=== PATIENT | female | born 1960 | race Hispanic/Latino ===

== ENCOUNTER → 2018-07-17 | Outpatient (CLI) | payer BC ==
--- NOTE | 2018-07-17 10:55 | Diagnostic Imaging Report ---
PROCEDURE:ABDOMINAL ULTRASOUND COMPARISON:None. INDICATIONS:FATTY LIVER TECHNIQUE: Hebert-scale and color sonographic images were obtained of the abdomen in transverse and sagittal planes. FINDINGS: Liver: Measures 13.4 cm in length in right midclavicular line. Increased echogenicity. No masses. Main portal vein: Measures 0.7 cm with normal hepatopetal flow Gallbladder: No stones or wall thickening. Common Bile Duct: Nondilated measuring 0.4 cm Sonographic Collier's sign: Negative Right kidney: Measures 10.0 x 4.8 x 4.4 cm without evidence of stones, hydronephrosis or mass. Left kidney: Measures 9.8 x 5.9 x 4.3 cm without evidence of stones, hydronephrosis or mass. Spleen: Measures 8.4 x 3.6 x 2.7 cm. Pancreas: The visualized portions are unremarkable. Inferior vena cava: Patent Aorta: Within normal limits Ascites: None CONCLUSION: Diffuse hepatic steatosis without a focal mass. Ramone Martinez D.O. Dictated by: Ramone Martinez D.O. on 07/17/2018 at 11:02 Electronically approved by: Ramone Martinez D.O. on 07/17/2018 at 11:02
== END ==
LOC: US 09:35
PROVIDERS: ATTEND Internal Medicine Gastroenterology
DX: K76.0 Fatty (change of) liver, not elsewhere classified (principal); E66.9 Obesity, unspecified; Z71.3 Dietary counseling and surveillance
CPT/HCPCS: 76700

== ENCOUNTER 2018-12-26 11:17 | Emergency (ER) | payer BC ==
[~2018-12-26] VITALS: Ht 152.4 cm; Wt 81.6 kg
--- OUTSIDE RECORDS SUMMARY | 2018-12-26 11:19 | XMS REPORT ---
Author Author [facility] Address Unknown Phone Unavailable Care Team Providers Care Media Reporter Name Role Phone Hang FENG Unavailable Unavailable Problems This patient has no known problems. Allergies, Adverse Reactions, Alerts Allergy Name Allergy Type Status Severity Reaction(s) Onset Date Inactive Date Treating Clinician Comments No Known Allergies DA Active U 2018-10-22 00:00:00 No Known Drug Intolerances DA Active U 2005-07-10 00:00:00 No Known Contrast Allergies DA Active U 2005-07-10 00:00:00 No Known Drug Allergies DA Active U 2005-07-10 00:00:00 No Known Food Allergies DA Active U 2005-07-10 00:00:00 No Known Other Allergies DA Active U 2005-07-10 00:00:00 Medications This patient has no known medications. Results Test Description Test Time Test Comments Text Results Atomic Results Result Comments US ABDOMEN COMPLETE 2018-07-17 11:02:00 [place] [address] Patient Name: ALTAGRACIA TAYLOR MR #: [id number] : 1960 Age/Sex: 58/F Req #: [id number] Adm Physician: Ordered by: VALDO FENG MD Report #: [id number] Location: US Room/Bed: Procedure: 2414-1355 US/US ABDOMEN COMPLETE Exam Date: Exam Time: REPORT STATUS: Signed PROCEDURE: ABDOMINAL ULTRASOUND COMPARISON: None. INDICATIONS: FATTY LIVER TECHNIQUE: Hebert-scale and color sonographic images were obtained of the abdomen in transverse and sagittal planes. FINDINGS: Liver: Measures 13.4 cm in length in right midclavicular line. Increased echogenicity. No masses. Main portal vein: Measures 0.7 cm with normal hepatopetal flow Gallbladder: No stones or wall thickening. Common Bile Duct: Nondilated measuring 0.4 cm Sonographic Collier's sign: Negative Right kidney: Measures 10.0 x 4.8 x 4.4 cm without evidence of stones, hydronephrosis or mass. Left kidney: Measures 9.8 x 5.9 x 4.3 cm without evidence of stones, hydronephrosis or mass. Spleen: Measures 8.4 x 3.6 x 2.7 cm. Pancreas: The visualized portions are unremarkable. Inferior vena cava: Patent Aorta: Within normal limits Ascites: None CONCLUSION: Diffuse hepatic steatosis without a focal mass. Tri Martinez D.O. Dictated by: Tri Martinez D.O. on 07/17/2018 at 11:02 Electronically approved by: Tri Martinez D.O. on 07/17/2018 at 11:02 Dictated By: TRI MARTINEZ DO 1102 Transcribed By: LEV on 07/17/18 1102 COPY TO: VALDO FENG MD
[2018-12-26 11:54] LABS: BILIRUBIN,URINE NEGATIVE (NEGATIVE); CLARITY,URINE CLEAR (CLEAR); COLOR,URINE YELLOW (YELLOW); KETONES,URINE NEGATIVE (NEGATIVE); LEUKOCYTE ESTERASE ,URINE TRACE (NEGATIVE); NITRITE,URINE NEGATIVE (NEGATIVE); PROTEIN,URINE DIPSTICK NEGATIVE (NEGATIVE); URINE UROBILINOGEN 0.2 mg/dL (0.2 - 1)
[2018-12-26 12:03] LABS: BASOPHILS # (AUTO) 0.1 (0.0-0.1); EOSINOPHILS # (AUTO) 0.2 (0.0-0.4); EOSINOPHILS % 2.4 % (0.0-6.0); LYMPHOCYTES % 37.5 % (18.0-39.1); MEAN CORPUSCULAR HEMOGLOBIN 26.8 pg (28-32); MEAN CORPUSCULAR HGB CONC 31.8 g/dL (31-35); MEAN CORPUSCULAR VOLUME 84.3 fL (81-99); MONOCYTES # (AUTO) 0.8 (0.2-0.8); MONOCYTES % 9.5 % (4.4-11.3); NEUTROPHILS % 49.4 % (38.7-80.0); PLATELET COUNT 246 x10e3/uL (140-360); RED BLOOD COUNT 5.22 x10e6/uL (3.6-5.1)
[2018-12-26 12:29] LABS: PREGNANCY TEST, URINE NEGATIVE (NEGATIVE)
[2018-12-26 12:44] LABS: ALANINE AMINOTRANSFERASE 32 IU/L (0-55); ALBUMIN 3.8 g/dL (3.5-5.0); ALKALINE PHOSPHATASE 69 IU/L (40-150); ANION GAP 8.8 mmol/L (8-16); BLOOD UREA NITROGEN 13 mg/dL (7-26); BUN/CREATININE RATIO 19 (6-25); CALCIUM 9.6 mg/dL (8.4-10.2); CARBON DIOXIDE 26 mmol/L (22-29); CHLORIDE 109 mmol/L (98-107); CREATININE, SERUM 0.68 mg/dL (0.57-1.11); EST GLOMERULAR FILTRATION RATE > 60 ML/MIN (60-); GLUCOSE 96 mg/dL (74-118); POTASSIUM 3.8 mmol/L (3.5-5.1); SODIUM 140 mmol/L (136-145)
[2018-12-26 12:46] LABS: EPITHELIAL CELLS,URINE MODERATE /LPF; RENAL EPITHELIAL CELLS,URINE FEW; TRANSITIONAL EPI CELLS,URINE MODERATE
--- NOTE | 2018-12-26 15:23 | Diagnostic Imaging Report ---
EXAMINATION: Right upper quadrant ultrasound CLINICAL INDICATION: Abdominal pain COMPARISON: None DISCUSSION: Transverse and longitudinal images of the right upper quadrant were obtained. The liver is normal in size measuring 12.9centimeters in length in the right midclavicular line and shows increased echogenicity. No focal masses are seen in the liver. There is no intrahepatic biliary dilatation. The common bile duct is normal in caliber and measures 0.3 cm. The main portal vein is normal in caliber and measures 0.7 cm with normal hepatopetal flow. The gallbladder is normal in appearance without stones, wall thickening or pericholecystic fluid. The sonographic Collier's sign is negative. The visualized portions of the pancreatic body are unremarkable. The right kidney measures 10.3 centimeters in length. There is normal renal cortical echogenicity and no hydronephrosis, mass or shadowing calculi. The visualized portions of the great vessels are normal. No free fluid is seen. IMPRESSION: Increased hepatic echogenicity. Normal ultrasound of the gallbladder. Signed by: Dr. Tono Ibrahim M.D. on 12/26/2018 3:20 PM
[2018-12-26] MEDS ORDERED: DICYCLOMINE HCL 20 MG/2 ML VIAL IM ONE (16:00)
[2018-12-26] MEDS ORDERED: KETOROLAC TROMETHAMINE 30 MG/ML VIAL IV ONE (16:00)
--- NOTE | 2018-12-26 16:32 | Diagnostic Imaging Report ---
Exam: Abdominal film Clinical History: Abdominal pain Comparison: None. DISCUSSION: Frontal view of the abdomen shows a nonobstructive bowel gas pattern with mild amount of retained stool. No dilated, air-filled loops of bowel. No abnormal calcifications. No acute bone abnormality. IMPRESSION: 1. Nonobstructive bowel gas pattern. Signed by: Dr. Tono Ibrahim M.D. on 12/26/2018 4:28 PM
[2018-12-26] MEDS ORDERED: LACTULOSE SYRUP 20 GM/30 ML UDC PO ONE (16:45)
[2018-12-26 17:07] VITALS: BP 127/73
== END 2018-12-26 17:19 | disposition home or self-care (01) ==
LOC: ER 11:17
DX: R10.11 Right upper quadrant pain (principal); K59.00 Constipation, unspecified
CPT/HCPCS: 36415; 74019; 76705; 80053; 81001; 81025; 85025; 93005; 99283; J0500; J1885